=== PATIENT | female | born 1945 | race Caucasian/White ===

== ENCOUNTER 2016-08-05 05:09 | Emergency (ER) | payer MEDICARE, OTHER ==
[2016-08-05 05:17] VITALS: TEMP 98
[2016-08-05] MEDS: ALBUTEROL/IPRATROPIUM 1 VIAL SOL INH ONE (05:19)
[2016-08-05] MEDS ORDERED: ALBUTEROL/IPRATROPIUM 1 VIAL SOL ONE (05:20)
[2016-08-05 05:22] VITALS: RESP 18
[2016-08-05 06:23] VITALS: BP 118/49; PULSE 76; O2SAT 96
== END 2016-08-05 06:45 | DRG 153 ==
LOC: ED 05:09
DX: J06.9 Acute upper respiratory infection, unspecified (principal)
CPT/HCPCS: 71010; 99284; J7620

== ENCOUNTER 2016-08-07 00:46 | Inpatient (IN) | payer MEDICARE, OTHER ==
[2016-08-07] MEDS ORDERED: SODIUM CHLORIDE 0.9% 1000ML 1,000 ML IV ONE ×5 (01:00→15:01)
[2016-08-07] MEDS ORDERED: LEVOFLOXACIN 500 MG (PREMIX) 500 MG/100 ML SOL IV ONE (01:08)
[2016-08-07] MEDS ORDERED: ALBUTEROL NEB SOL 2.5MG/3ML 1 VIAL SOL NEB ONE (01:10)
[2016-08-07 01:15] LABS: HEMATOCRIT 31 % (35-47); MEAN CORPUSCULAR VOLUME 88 fL (81-99)
[2016-08-07] MEDS ORDERED: VANCOMYCIN HCL 500 MG PDS 1,000 MG in SODIUM CHLORIDE 0.9% 250 ML 250 ML IV SCH (01:15)
[2016-08-07] MEDS ORDERED: SODIUM CHLORIDE 0.9% IV SCH (01:15)
[2016-08-07] MEDS ORDERED: CLINDAMYCIN IV SCH (01:15)
[2016-08-07] MEDS ORDERED: LEVOFLOXACIN 500 MG (PREMIX) 500 MG/100 ML SOL IV SCH (01:15)
[2016-08-07 01:24] LABS: ALBUMIN 2.6 gm/dl (3.4-5.0); CALCIUM 8.6 mg/dl (8.5-10.1); POTASSIUM 4.1 mMol/L (3.5-5.1)
[2016-08-07] MEDS ORDERED: ALBUTEROL NEB SOL 2.5MG/3ML 1 VIAL SOL ONE (01:24)
[2016-08-07 01:34] LABS: APPEARANCE,URINE Cloudy; BILIRUBIN,URINE NEGATIVE (NEGATIVE); COLOR,URINE Yellow; GLUCOSE, URINE (UA) NEGATIVE (NEGATIVE); KETONES,URINE NEGATIVE (NEGATIVE); LEUKOCYTE ESTERASE ,URINE 2+ (NEGATIVE); NITRATE,URINE NEGATIVE (NEGATIVE); OCCULT BLOOD,URINE 2+ (NEG-TRACE); PH,URINE 5.5; UROBILINOGEN,URINE 0.2 (0.2-1.0 EU)
[2016-08-07 01:39] LABS: BASOPHILS % (MANUAL) 0 % (0-3); EOSINOPHILS % (MANUAL) 0 % (0-9); LYMPHOCYTES % (MANUAL) 3 % (10-50); NORMAL RBCS PRESENT
[2016-08-07 01:48] LABS: RBC,URINE 0-2 (0-3AV/HPF); WBC,URINE TNTC (0-5AV/HPF)
[2016-08-07] MEDS ORDERED: ENOXAPARIN 60 MG SOL SC SCH ×2 (02:15→03:15)
[2016-08-07] MEDS ORDERED: ACETAMINOPHEN 650 MG SUP PR PRN (02:18)
[2016-08-07] MEDS ORDERED: ALBUTEROL NEB SOL 2.5MG/3ML 1 VIAL SOL NEB PRN (02:18)
[2016-08-07] MEDS ORDERED: VANCOMYCIN HYDROCHLORIDE 500 MG PDS IV ONE (02:20)
[2016-08-07] MEDS ORDERED: CLINDAMYCIN 150 MG/ML SOL ONE (03:31)
[2016-08-07] MEDS ORDERED: SODIUM CHLORIDE 0.9% 250 ML 250 ML IV ONE (03:33)
[2016-08-07] MEDS: ALBUTEROL NEB SOL 2.5MG/3ML 1 VIAL SOL NEB PRN ×2 (05:05→08:33)
[2016-08-07] MEDS ORDERED: OMEPRAZOLE 20 MG CAPSULE PO SCH (07:00)
[2016-08-07 07:39] LABS: CALCIUM 8.1 mg/dl (8.5-10.1); POTASSIUM 4.3 mMol/L (3.5-5.1)
[2016-08-07 07:55] LABS: HEMATOCRIT 30 % (35-47); MEAN CORPUSCULAR HGB CONC 34.3 gm/dl (32.0-36.0); MEAN CORPUSCULAR VOLUME 91 fL (81-99)
[2016-08-07 08:37] LABS: ANISOCYTOSIS SLIGHT; BASOPHILS % (MANUAL) 1 % (0-3); EOSINOPHILS % (MANUAL) 0 % (0-9); LYMPHOCYTES % (MANUAL) 2 % (10-50)
[2016-08-07 09:21] LABS: ABG PH 7.32 (7.35-7.45)
[2016-08-07] MEDS: SOLUMEDROL 125 MG/2 ML 125 MG/2 ML PDS IV SCH ×3 (09:27→21:02)
[2016-08-07] MEDS: SODIUM CHLORIDE 0.9% FLUSH 10 ML SOL IV SCH ×3 (09:28→16:44)
[2016-08-07] MEDS: DIVALPROEX 250 MG TAB.ER.24H PO SCH ×3 (09:29→21:02)
[2016-08-07] MEDS: LORAZEPAM 0.5 MG TAB PO SCH ×3 (09:29→21:03)
[2016-08-07] MEDS: ALLOPURINOL 100 MG TAB PO SCH (09:30)
[2016-08-07] MEDS: PANTOPRAZOLE SODIUM 40 MG ECT PO SCH (09:30)
[2016-08-07] MEDS: ASPIRIN EC 81 MG PO SCH (09:30)
[2016-08-07] MEDS: POLYETHYLENE GLYCOL 17 GM/1 TBS PDS PO SCH (09:30)
[2016-08-07] MEDS: FLUOXETINE HYDROCHLORIDE 10 MG CAP PO SCH (09:30)
[2016-08-07] MEDS: ACETAMINOPHEN 325 MG PO PRN (10:40)
[2016-08-07] MEDS ORDERED: PHARMACOKINETICS 1 MISC PRN (11:13)
[2016-08-07] MEDS: ALBUTEROL/IPRATROPIUM 1 VIAL SOL INH SCH ×2 (13:35→18:32)
[2016-08-07] MEDS: DEXTROSE/SALINE 0.45/KCL 20MEQ 1,000 ML/1,000 ML SOL IV SCH (17:55)
[2016-08-07] MEDS: ENOXAPARIN 60 MG SOL SC SCH (17:58)
[2016-08-07] MEDS: FERROUS SULFATE 325 MG TAB PO SCH (21:02)
[2016-08-07] MEDS: TRAZODONE HYDROCHLORIDE 50 MG TAB PO SCH (21:02)
[2016-08-07] MEDS: LAMOTRIGINE 100 MG TAB PO SCH (21:03)
[2016-08-08] MEDS: ALBUTEROL/IPRATROPIUM 1 VIAL SOL INH SCH ×4 (00:44→20:50)
[2016-08-08] MEDS ORDERED: SODIUM CHLORIDE 0.9% 100 ML 100 ML IV ONE (00:53)
[2016-08-08] MEDS ORDERED: LEVOFLOXACIN 25 MG/ML SOL IV ONE (00:53)
[2016-08-08] MEDS: LEVOFLOXACIN 25 MG/ML 250 MG in SODIUM CHLORIDE 0.9% 100 ML 100 ML IV SCH (01:05)
[2016-08-08] MEDS: SODIUM CHLORIDE 0.9% FLUSH 10 ML SOL IV SCH ×4 (01:05→18:12)
[2016-08-08] MEDS: DEXTROSE/SALINE 0.45/KCL 20MEQ 1,000 ML/1,000 ML SOL IV SCH ×2 (01:07→08:42)
[2016-08-08] MEDS: SOLUMEDROL 125 MG/2 ML 125 MG/2 ML PDS IV SCH ×4 (05:30→20:57)
[2016-08-08] MEDS: ENOXAPARIN 60 MG SOL SC SCH ×2 (05:33→18:15)
[2016-08-08 07:26] LABS: CALCIUM 8.1 mg/dl (8.5-10.1); POTASSIUM 4.9 mMol/L (3.5-5.1)
[2016-08-08 07:35] LABS: BASOPHILS % (AUTO) 0 % (0-3); EOSINOPHILS % (AUTO) 0 % (0-9); HEMATOCRIT 28 % (35-47); MEAN CORPUSCULAR HGB CONC 34.5 gm/dl (32.0-36.0); MEAN CORPUSCULAR VOLUME 90 fL (81-99); MONOCYTES % (AUTO) 7.9 % (0-12); NEUTROPHILS % (AUTO) 87.9 % (37-80)
[2016-08-08] MEDS: SODIUM CHLORIDE 0.9% 1000ML 1,000 ML IV SCH ×2 (08:50→19:13)
[2016-08-08] MEDS: LORAZEPAM 0.5 MG TAB PO SCH ×3 (08:57→20:57)
[2016-08-08] MEDS: FLUOXETINE HYDROCHLORIDE 10 MG CAP PO SCH (08:57)
[2016-08-08] MEDS: PANTOPRAZOLE SODIUM 40 MG ECT PO SCH (08:57)
[2016-08-08] MEDS: ASPIRIN EC 81 MG PO SCH (08:57)
[2016-08-08] MEDS: DIVALPROEX 250 MG TAB.ER.24H PO SCH ×3 (08:57→20:53)
[2016-08-08] MEDS: POLYETHYLENE GLYCOL 17 GM/1 TBS PDS PO SCH (08:57)
[2016-08-08] MEDS: ALLOPURINOL 100 MG TAB PO SCH (08:58)
[2016-08-08] MEDS: ACETAMINOPHEN 325 MG PO PRN (14:20)
[2016-08-08] MEDS: TRAZODONE HYDROCHLORIDE 50 MG TAB PO SCH (20:53)
[2016-08-08] MEDS: LAMOTRIGINE 100 MG TAB PO SCH (20:54)
[2016-08-08] MEDS: FERROUS SULFATE 325 MG TAB PO SCH (20:54)
[2016-08-09] MEDS ORDERED: LEVOFLOXACIN 25 MG/ML SOL IV ONE (00:16)
[2016-08-09] MEDS: LEVOFLOXACIN 25 MG/ML 250 MG in SODIUM CHLORIDE 0.9% 100 ML 100 ML IV SCH (01:32)
[2016-08-09] MEDS: ALBUTEROL/IPRATROPIUM 1 VIAL SOL INH SCH ×4 (01:33→18:33)
[2016-08-09] MEDS: SODIUM CHLORIDE 0.9% FLUSH 10 ML SOL IV SCH ×5 (01:34→18:36)
[2016-08-09] MEDS: SOLUMEDROL 125 MG/2 ML 125 MG/2 ML PDS IV SCH ×3 (01:35→15:35)
[2016-08-09] MEDS: SODIUM CHLORIDE 0.9% 1000ML 1,000 ML IV SCH (05:46)
[2016-08-09] MEDS: ENOXAPARIN 60 MG SOL SC SCH ×2 (06:43→18:31)
[2016-08-09 07:36] LABS: BASOPHILS % (AUTO) 0 % (0-3); EOSINOPHILS % (AUTO) 0 % (0-9); HEMATOCRIT 28 % (35-47); MEAN CORPUSCULAR HGB CONC 35.4 gm/dl (32.0-36.0); MEAN CORPUSCULAR VOLUME 88 fL (81-99); MONOCYTES % (AUTO) 5.9 % (0-12); NEUTROPHILS % (AUTO) 91.1 % (37-80)
[2016-08-09 07:44] LABS: ALBUMIN 1.9 gm/dl (3.4-5.0); CALCIUM 8.3 mg/dl (8.5-10.1); POTASSIUM 4.4 mMol/L (3.5-5.1)
[2016-08-09] MEDS: FLUOXETINE HYDROCHLORIDE 10 MG CAP PO SCH (09:21)
[2016-08-09] MEDS: DIVALPROEX 250 MG TAB.ER.24H PO SCH ×3 (09:21→21:37)
[2016-08-09] MEDS: ALLOPURINOL 100 MG TAB PO SCH (09:22)
[2016-08-09] MEDS: POLYETHYLENE GLYCOL 17 GM/1 TBS PDS PO SCH (09:22)
[2016-08-09] MEDS: ASPIRIN EC 81 MG PO SCH (09:22)
[2016-08-09] MEDS: PANTOPRAZOLE SODIUM 40 MG ECT PO SCH (09:22)
[2016-08-09] MEDS: LORAZEPAM 0.5 MG TAB PO SCH ×3 (09:25→21:37)
[2016-08-09] MEDS: CEFTRIAXONE 1 GM (PREMIX) SOL IV SCH (12:35)
[2016-08-09] MEDS: ACETAMINOPHEN 325 MG PO PRN (13:09)
[2016-08-09] MEDS ORDERED: QUETIAPINE FUMARATE 25 MG TAB PO ONE (21:00)
[2016-08-09] MEDS: FERROUS SULFATE 325 MG TAB PO SCH (21:37)
[2016-08-09] MEDS: LAMOTRIGINE 100 MG TAB PO SCH (21:38)
[2016-08-09] MEDS: CLOTRIMAZOLE 1% CREAM TOP SCH (21:49)
[2016-08-09] MEDS: TRAZODONE HYDROCHLORIDE 50 MG TAB PO SCH (22:28)
[2016-08-10] MEDS: ALBUTEROL/IPRATROPIUM 1 VIAL SOL INH SCH ×4 (00:36→18:41)
[2016-08-10] MEDS: ACETAMINOPHEN 325 MG PO PRN ×3 (00:36→18:39)
[2016-08-10] MEDS: SODIUM CHLORIDE 0.9% FLUSH 10 ML SOL IV SCH ×4 (02:00→17:20)
[2016-08-10] MEDS: ENOXAPARIN 60 MG SOL SC SCH (06:03)
[2016-08-10 07:27] LABS: CALCIUM 8.9 mg/dl (8.5-10.1)
[2016-08-10 07:47] LABS: BASOPHILS % (AUTO) 1 % (0-3); EOSINOPHILS % (AUTO) 0 % (0-9); HEMATOCRIT 29 % (35-47); MEAN CORPUSCULAR HGB CONC 35.5 gm/dl (32.0-36.0); MEAN CORPUSCULAR VOLUME 88 fL (81-99); NEUTROPHILS % (AUTO) 90.5 % (37-80)
[2016-08-10] MEDS ORDERED: TEMAZEPAM 15MG 15 MG CAP PO PRN (08:06)
[2016-08-10] MEDS: ASPIRIN EC 81 MG PO SCH (08:38)
[2016-08-10] MEDS: LORAZEPAM 0.5 MG TAB PO SCH ×3 (08:40→20:33)
[2016-08-10] MEDS: POLYETHYLENE GLYCOL 17 GM/1 TBS PDS PO SCH (08:40)
[2016-08-10] MEDS: DIVALPROEX 250 MG TAB.ER.24H PO SCH ×3 (08:40→20:34)
[2016-08-10] MEDS: CLOTRIMAZOLE 1% CREAM TOP SCH ×2 (08:41→20:36)
[2016-08-10] MEDS: ALLOPURINOL 100 MG TAB PO SCH (08:41)
[2016-08-10] MEDS: PANTOPRAZOLE SODIUM 40 MG ECT PO SCH (08:41)
[2016-08-10] MEDS: FLUOXETINE HYDROCHLORIDE 10 MG CAP PO SCH (08:41)
[2016-08-10] MEDS: PREDNISONE 20 MG TAB PO SCH (08:43)
[2016-08-10] MEDS: ENOXAPARIN 40 MG SOL SC SCH (10:02)
[2016-08-10] MEDS: CEFTRIAXONE 1 GM (PREMIX) SOL IV SCH (12:16)
[2016-08-10] MEDS ORDERED: LOXAPINE SUCCINATE 10 MG PO SCH (14:00)
[2016-08-10] MEDS: QUETIAPINE FUMARATE 25 MG TAB PO SCH ×2 (17:52→20:36)
[2016-08-10] MEDS: TRAZODONE HYDROCHLORIDE 50 MG TAB PO SCH (20:34)
[2016-08-10] MEDS: FERROUS SULFATE 325 MG TAB PO SCH (20:34)
[2016-08-10] MEDS: LAMOTRIGINE 100 MG TAB PO SCH (20:35)
[2016-08-11] MEDS: ALBUTEROL/IPRATROPIUM 1 VIAL SOL INH SCH ×2 (00:22→06:06)
[2016-08-11] MEDS: SODIUM CHLORIDE 0.9% FLUSH 10 ML SOL IV SCH ×2 (00:30→09:26)
[2016-08-11] MEDS: ACETAMINOPHEN 325 MG PO PRN (05:11)
[2016-08-11 07:33] LABS: CALCIUM 9.2 mg/dl (8.5-10.1)
[2016-08-11 07:51] VITALS: BP 137/91; PULSE 87; RESP 20; TEMP 98.3; O2SAT 91
[2016-08-11 07:55] LABS: HEMATOCRIT 32 % (35-47); MEAN CORPUSCULAR HGB CONC 34.5 gm/dl (32.0-36.0); MEAN CORPUSCULAR VOLUME 88 fL (81-99)
[2016-08-11 08:12] LABS: BASOPHILS % (MANUAL) 0 % (0-3); EOSINOPHILS % (MANUAL) 0 % (0-9); LYMPHOCYTES % (MANUAL) 17 % (10-50); NORMAL RBCS PRESENT
[2016-08-11] MEDS: ASPIRIN EC 81 MG PO SCH (08:40)
[2016-08-11] MEDS: DIVALPROEX 250 MG TAB.ER.24H PO SCH (08:40)
[2016-08-11] MEDS: CLOTRIMAZOLE 1% CREAM TOP SCH (08:40)
[2016-08-11] MEDS: FLUOXETINE HYDROCHLORIDE 10 MG CAP PO SCH (08:41)
[2016-08-11] MEDS: ALLOPURINOL 100 MG TAB PO SCH (08:41)
[2016-08-11] MEDS: PANTOPRAZOLE SODIUM 40 MG ECT PO SCH (08:41)
[2016-08-11] MEDS: PREDNISONE 20 MG TAB PO SCH (08:41)
[2016-08-11] MEDS: POLYETHYLENE GLYCOL 17 GM/1 TBS PDS PO SCH (08:41)
[2016-08-11] MEDS: QUETIAPINE FUMARATE 25 MG TAB PO SCH (08:43)
[2016-08-11] MEDS: LORAZEPAM 0.5 MG TAB PO SCH (08:43)
[2016-08-11] MEDS: ENOXAPARIN 40 MG SOL SC SCH (08:43)
[2016-08-11] MEDS ORDERED: CEFTRIAXONE 1 GM PDS IM ONE (10:58)
[2016-08-11] MEDS ORDERED: LIDOCAINE HCL 1% MPF SOL INFIL ONE (10:59)
== END 2016-08-11 12:30 | DRG 872 ==
LOC: ED 00:46 → ACUTE CARE 02:07
PROVIDERS: ADMIT Family Medicine; ATTEND Family Medicine
DX: A41.9 Sepsis, unspecified organism (principal); N17.9 Acute kidney failure, unspecified; R06.00 Dyspnea, unspecified; N39.0 Urinary tract infection, site not specified; J06.9 Acute upper respiratory infection, unspecified; R41.0 Disorientation, unspecified; R53.1 Weakness
CPT/HCPCS: 36415; 36600; 71010; 80048; 80053; 81001; 82803; 82962; 83880; 85007; 85025; 85027; 87040; 87077; 87088; 87186; 93005; 93012; 94640; 94762; 96365; 99070; 99222; 99285; J0696; J1650; J1956; J2930; J3370; J3490; J7603; J7620; J2001